=== PATIENT | male | born 1970 | race Caucasian/White ===

== ENCOUNTER 2018-06-08 10:28 | Inpatient (IN) | payer BC, OTHER ==
[2018-06-08] MEDS ORDERED: LR 1,000 ML IV ONE (10:52)
[2018-06-08] MEDS ORDERED: ceFAZolin 2 GM/DEXTROSE 100 ML IV ONE (11:59)
[2018-06-08] MEDS ORDERED: EPINEPHrine 1 MG/ML INJ ONE (12:44)
[2018-06-08] MEDS ORDERED: THROMBIN (BOVINE) 20,000 UNIT VIAL TP ONE (12:44)
[2018-06-08] MEDS ORDERED: CHLORHEXIDINE GLUC HIBICLENS 118 ML BTL TP ONE (12:44)
[2018-06-08] MEDS ORDERED: BACITRACIN 50,000 UNITS/10 ML SYR IRR ONE (12:44)
[2018-06-08] MEDS ORDERED: BUPIVACAINE 0.25% 30 ML SDV ONE (12:44)
[2018-06-08] MEDS ORDERED: CITRATE DEXTROSE SOLN 500 ML BAG ONE (12:46)
--- NOTE | 2018-06-08 12:52 | PDHPUP ---
History & Physical Update H&P update statement: This history and physical update is based on an assessment of the patient which was completed after admission or registration (within 24 hours), but prior to the surgery/procedure. H&P update: H&P reviewed & patient examined, no change in patient's condition since H&P completed (Consents signed and site marked. All questions answered.)
[2018-06-08] MEDS ORDERED: MIDAZOLAM 2 MG/2 ML VIAL IVP ONE (13:11)
--- NOTE | 2018-06-08 13:13 | PDANEPAE ---
ANE Past Medical History - Cardiovascular History Hx Hypertension: Yes Hx Arrhythmias: No Hx Chest Pain: No Hx Coronary Artery / Peripheral Vascular Disease: No Hx CHF / Valvular Disease: No Hx Palpitations: No - Pulmonary History Hx COPD: No Hx Asthma/Reactive Airway Disease: No Hx Recent Upper Respiratory Infection: No Hx Oxygen in Use at Home: No Hx Sleep Apnea: No Sleep Apnea Screening Result - Last Documented: Positive - Neurologic History Hx Cerebrovascular Accident: No Hx Seizures: No Hx Dementia: No - Endocrine History Hx Diabetes: No Obesity: moderate - Renal History Hx Renal Disorders: No - Liver History Hx Hepatic Disorders: No - Neurological & Psychiatric Hx Hx Neurological and Psychiatric Disorders: Yes Neurological / Psychiatric History Comment: sciatica, N/T > Rthan L - Cancer History Hx Cancer: No - Congenital Disorder History Hx Congenital Disorders: No - GI History GERD: mild Hx Gastrointestinal Disorders: No Gastrointestinal History Comment: Occ. heartburn. - Other Health History Other Health History: Osteoarthritis. - Chronic Pain History Chronic Pain: Yes (neck, back) - Surgical History Prior Surgeries: 2007-vasectomy. 2012-wisdom teeth. cervical fusion. lumbar microdiscectomy 2014 ANE Review of Systems Review of Systems: - Exercise capacity METS (RN): 4 METS ANE Patient History - Allergies Allergies/Adverse Reactions: No Known Allergies Allergy (Verified 06/06/18 15:46) - Home Medications Home medications: home medication list seen and reviewed Home Medications: Cyclobenzaprine [Flexeril 10 MG (*)] 10 mg PO TID 02/04/14 [Last Taken 06/08/18] Lisinopril [Zestril 40 mg (*)] 40 mg PO DAILY 02/04/14 [Last Taken 06/08/18] Gabapentin [Neurontin 300 MG (*)] 600 mg PO QID 02/05/14 [Last Taken 06/08/18] HYDROcodone/APAP 10/325 [Ferguson 10/325 (*)] 1.5 tab PO Q6HRS PRN 06/06/18 [Last Taken 06/08/18] Naproxen Sodium [Naproxen Sodium ER] 500 mg PO BID 06/08/18 [Last Taken 06/01/18 ] - NPO status NPO Status: no food or drink >8 hours NPO Since - Liquids (Date): 06/08/18 NPO Since - Liquids (Time): 06:00 NPO Since - Solids (Date): 06/07/18 NPO Since - Solids (Time): 13:00 - Anes Hx Anes Hx: no prior problems - Smoking Hx Smoking Status: Former smoker - Family Anes Hx Family Hx Anesthesia Complications: none ANE Labs/Vital Signs - Vital Signs Blood Pressure: 116/77 Heart Rate: 92 Respiratory Rate: 20 O2 Sat (%): 94 Height: 185.42 cm Weight: 108.862 kg ANE Physical Exam - Airway Neck exam: FROM Mallampati Score: Class 1 Mouth exam: normal dental/mouth exam - Pulmonary Pulmonary: no respiratory distress, no rales or rhonchi, clear to auscultation - Cardiovascular Cardiovascular: regular rate and rhythym, no murmur, rub, or gallop - ASA Status ASA Status: II ANE Anesthesia Plan Anesthesia Plan: general endotracheal anesthesia
[2018-06-08] MEDS ORDERED: MIDAZOLAM 2 MG/2 ML VIAL ONE (13:17)
[2018-06-08] MEDS ORDERED: PROPOFOL 200 MG/20 ML VIAL ONE ×3 (13:28→17:21)
[2018-06-08] MEDS ORDERED: BISACODYL 10 MG SUPP PR PRN (13:44)
[2018-06-08] MEDS ORDERED: ONDANSETRON DISINTEGRATING 4 MG TAB PO PRN (13:44)
[2018-06-08] MEDS ORDERED: diphenhydrAMINE 25 MG CAP PO PRN (13:44)
[2018-06-08] MEDS ORDERED: ONDANSETRON 4 MG/2 ML VIAL IVP PRN ×2 (13:44→16:37)
[2018-06-08] MEDS ORDERED: MAGNESIUM HYDROXIDE 30 ML UDCUP PO PRN (13:44)
[2018-06-08] MEDS ORDERED: LACTULOSE 20 GM/30 ML UDCUP PO PRN (13:44)
[2018-06-08] MEDS ORDERED: NS 1,000 ML IV SCH (13:45)
[2018-06-08] MEDS ORDERED: DEXAMETHASONE 4 MG/ML VIAL ONE ×3 (13:52→13:53)
[2018-06-08] MEDS ORDERED: ONDANSETRON 4 MG/2 ML VIAL ONE (13:52)
[2018-06-08] MEDS ORDERED: ROCURONIUM 50 MG/5 ML VIAL ONE (13:56)
[2018-06-08] MEDS ORDERED: morphINE PF 5 MG/10 ML INJ IT ONE (14:06)
[2018-06-08] MEDS ORDERED: PROPOFOL/EMULSION 500 MG/50 ML BOTTLE IV ONE (15:47)
[2018-06-08] MEDS ORDERED: NALOXONE HCL 0.4 MG/ML INJ IVP PRN ×2 (16:30→18:10)
[2018-06-08] MEDS ORDERED: ESMOLOL HCL 100 MG/10 ML VIAL IV ONE (16:32)
[2018-06-08] MEDS ORDERED: ENALAPRILAT DIHYDRATE 1.25 MG/ML VIAL IVP PRN (16:37)
[2018-06-08] MEDS ORDERED: MEPERIDINE 25 MG/0.5 ML AMP IVP PRN (16:37)
[2018-06-08] MEDS ORDERED: PHENYLEPHRINE HCL 100 MCG/ML SYR IVP PRN (16:37)
[2018-06-08] MEDS ORDERED: LR 500 ML IV PRN (16:37)
[2018-06-08] MEDS ORDERED: HYDROCODONE/APAP 5/325 TAB PO PRN (16:37)
[2018-06-08] MEDS ORDERED: PROMETHAZINE HCL 25 MG/ML INJ IVP PRN (16:37)
[2018-06-08] MEDS ORDERED: PHENYLEPHRINE HCL 100 MCG/ML SYR ONE (17:03)
[2018-06-08] MEDS ORDERED: ceFAZolin 1 GM VIAL ONE ×2 (17:28)
--- NOTE | 2018-06-08 18:04 | POSTOPPROG ---
Post Op Note Date of Operation: 06/08/18 Surgeon: [facility] Custodian: Estella Covarrubias NP Anesthesiologist: Dr Cope Anesthesia: GET(General Endotracheal) Pre-op Diagnosis: Lumbar stenosis Procedure: Right L4-5, L5-S1 TLIF with L4-S1 PSF Inf/Abcess present in the surg proc area at time of surgery?: No Depth: Deep Incisional (Fascial) EBL: 100-500 Total fluids administered: see anesthesia Complications: none Drains: Alejandro Atwood Date of Surgery: 06/08/18 Post Op Day: 0 Assessment/Plan: Assessment: 47 yr old M s/p Right L4-5, L5-S1 TLIF with PSF L4-S1 Plan: -Admit Med Surg -Pain management -MARIO to bulb suction -PT/OT -Post op xrays in am Please call with questions/concerns Subjective: waking up in pacu Objective: waking up in pacu MAEx4 5/5 BLE Dressing CDI MARIO patent Appropriate Neuro Check Frequency Ordered: Yes
--- NOTE | 2018-06-08 18:12 | POSTANESTH ---
Post Anesthetic Evaluation Cardiovascular Status: Normal, Stable, Similar to Pre-Op Cond Respiratory Status: Normal, Stable, Similar to Pre-op Cond. Level of Consciousness/Mental Status: Can Participate in Eval, Moderately Sleepy Pain Control: Adequate, Prn Tx Ordered Nausea/Vomiting Control: Adequate, Prn Tx Ordered Complications Possibly Related to Anesthesia: None Noted
[2018-06-08] MEDS ORDERED: fentaNYL 100 MCG/2 ML INJ ONE ×2 (18:20→19:53)
[2018-06-08] MEDS ORDERED: DIAZEPAM 5 MG/ML 1 ML SYR ONE (18:21)
[2018-06-08] MEDS: DIAZEPAM 5 MG/ML 1 ML SYR IVP PRN ×2 (18:35→19:03)
[2018-06-08] MEDS: fentaNYL 100 MCG/2 ML INJ IVP PRN ×4 (18:41→19:53)
[2018-06-08] MEDS ORDERED: HYDROCODONE/APAP 5/325 TAB ONE (19:40)
[2018-06-08] MEDS: SENNOSIDES/DOCUSATE SODIUM TAB PO SCH (21:37)
[2018-06-08] MEDS: oxyCODONE IR 5 MG TAB PO PRN (21:39)
[2018-06-08] MEDS: ACETAMINOPHEN 500 MG TAB PO SCH (21:40)
[2018-06-08] MEDS: FAMOTIDINE 20 MG TAB PO SCH (21:40)
[2018-06-08] MEDS: METHOCARBAMOL 750 MG TAB PO SCH (21:41)
[2018-06-08] MEDS: GABAPENTIN 300 MG CAP PO SCH (21:42)
[2018-06-08] MEDS ORDERED: CARBOXYMETHYLCELLULOSE 0.5% 0.4 ML DROPERETTE EACHEYE PRN (23:13)
[2018-06-09] MEDS: ceFAZolin 2 GM/DEXTROSE 100 ML IV SCH ×3 (01:26→11:44)
[2018-06-09] MEDS: METHOCARBAMOL 750 MG TAB PO SCH ×5 (05:10→21:17)
[2018-06-09] MEDS: GABAPENTIN 300 MG CAP PO SCH ×5 (05:11→21:18)
[2018-06-09] MEDS: oxyCODONE IR 5 MG TAB PO PRN ×4 (05:13→19:37)
[2018-06-09] MEDS: ACETAMINOPHEN 500 MG TAB PO SCH ×4 (05:14→22:12)
[2018-06-09 05:25] LABS: PLATELET COUNT 189 10^3/uL (150-400)
--- NOTE | 2018-06-09 05:55 | GOP ---
[f rep st] OPERATIVE REPORT DATE OF OPERATION: 06/08/2018 SURGEON: Bowen Hills MD OPTICAL INSTRUMENT REPAIRER: Estella Covarrubias NP. ANESTHESIA: General. PREOPERATIVE DIAGNOSIS: 1. L4-L5, L5-S1 lumbar spondylosis. 2. Right-sided L5-S1 recurrent disk herniation. 3. Right lower extremity radiculopathy. 4. Low back pain. 5. Treatment refractory to nonoperative intervention. POSTOPERATIVE DIAGNOSIS: 1. L4-L5, L5-S1 lumbar spondylosis. 2. Right-sided L5-S1 recurrent disk herniation. 3. Right lower extremity radiculopathy. 4. Low back pain. 5. Treatment refractory to nonoperative intervention. PROCEDURE PERFORMED: 1. Posterior arthrodesis with approach to L4, L5, S1. 2. Posterolateral fusion with bilateral pedicle screw placement at L4, L5, and S1 from [employer] 4.75 system. 3. Right-sided L4-L5 hemilaminotomy with facetectomy, foraminotomy, and nerve root decompression. 4. Right-sided L5-S1 redo hemilaminotomy, facetectomy, and foraminotomy,with nerve root decompression and redo diskectomy. 5. Right-sided L4-5 transforaminal lumbar interbody fusion with an 8 x 26 mm titanium coated PEEK cage filled with morselized autograft and allograft. 6. Right-sided L5-S1 transforaminal lumbar interbody fusion with an 8 x 28 mm titanium PEEK elevate cage filled with morselized autograft and allograft. 7. Posterolateral fusion on the left between L4 and S1 with morselized autograft and allograft. 8. Use of intraoperative 3D Stealth navigation. 9. Use of intraoperative fluoroscopy, less than 1 hour physician time. 10. Use of neuromonitoring. 11. Use of operative microscope. 12. Injection of preservative-free intrathecal narcotics. FINDINGS: per imaging COMPLICATIONS: None. SPECIMENS: None. ESTIMATED BLOOD LOSS: 150 mL. INDICATIONS: The patient is a very pleasant, 47-year-old gentleman, who has undergone a prior right-sided L5-S1 diskectomy. He did quite well but progressed with recurrent low back pain with right greater than left lower extremity radiculopathy. He had evidence of recurrent disk herniation on the right side at L5-S1. After discussion of risks, benefits, and treatment alternatives and after failing nonoperative management, we decided to proceed forth with surgery as described above. DESCRIPTION OF PROCEDURE: The patient was brought to the operating theater and underwent general endotracheal anesthesia without complications. He had Venodynes, ARLET hose, and the appropriate lines placed per Anesthesia. He was flipped prone onto the Alejandro table and all bony prominences inspected and padded. The lower lumbar region was then prepped and draped in the usual sterile surgical fashion. A time-out was completed per protocol and the patient received antibiotics within 1 hour of incision. Using lateral fluoroscopy and a spinal needle, we picked our entry point to the L4 through S1 levels. This incorporated his prior incision. The incision was infiltrated with Marcaine with epinephrine. The incision was taken down with the scalpel blade and using monopolar, taken down midline through the lumbodorsal fascia. A subperiosteal dissection was carried out to the transverse processes of L4, L5, and S1 bilaterally. Care was taken to preserve the L3-4 facet joint bilaterally and to avoid the prior right-sided L5-S1 hemilaminotomy defect. Deep retractors were placed to maintain our exposure. We confirmed our level using lateral fluoroscopy. The patient did have a sacralized S1-S2 segment and we confirmed the levels based on his MRI scan. We attached the 3D Stealth navigation clamp to the spinous process of S1 and completed a 3D Stealth navigation spin. Using 3D navigation, we placed the hardware sales assistant holes for the bilateral pedicle screws at L4, L5, and S1. All holes were manually palpated with evidence of any cortical breaches. We tapped and placed 6.5 x 55 mm screws bilaterally in L, L5 and left-sided S1 and 6.5 x 60 mm screw on the right S1, all from [employer]era 4.75 system. Another 3D Stealth navigation spin demonstrated good placement of the hardware. The microscope was brought into the field to assist with microscopic dissection and to maintain illumination and magnification. Using a combination of the bur tip on the drill bit, Kerrison punches, and Leksell rongeur, we completed a right-sided L4-5 hemilaminotomy with an aggressive facetectomy and nerve root decompression with foraminotomy. We distracted the interspace and completed a right L4-5 diskectomy. We prepared the cartilaginous endplates and measured the interbody space. We placed an 8 x 26 mm titanium coated PEEK cage filled with morselized autograft and allograft anteriorly and toward the midline. We packed additional morcellized autograft into the disk space for the interbody fusion. We let down the distraction and moved down to the L5-S1 level. We completed a right-sided redo L5-S1 hemilaminotomy with aggressive facetectomy and foraminotomy. The patient was noted to be extremely adherent and scarred to this level from his prior surgery. We retracted the thecal sac medially as far as we could. We were able to pull out a few free fragments of disk material. We then completed a right-sided L5-S1 diskectomy. We prepared the cartilaginous endplates and measured the interbody space. We placed an 8 x 28 mm titanium PEEK elevate cage filled with morselized autograft and allograft anteriorly and toward the midline. We packed additional morcellized autograft in the disk space for interbody fusion. We let down the distraction and decorticated the bone on the left side between L4 and S1. We placed 2 lordotic rods into the heads of the screws between L4 and S1 and secured them down with cap screws which were tightened per manufacture's setting. The wound was irrigated copiously with bacitracin irrigation. We placed morselized autograft and allograft on the left side between L4 and S1. We injected preservative-free intrathecal narcotics. A drain was left in the subfascial space and the wound then closed in multiple layers including Vicryl sutures in the deep layers and Dermabond for the skin. The patient's wounds were dressed sterilely. He was flipped supine onto the transfer cart, where he was awakened, extubated, and taken to the recovery room in stable condition. There were no complications and no noted changes on neuromonitoring throughout the procedure. /[id number]/MODL MTDD
[2018-06-09] MEDS: LISINOPRIL 40 MG TAB PO SCH (08:26)
[2018-06-09] MEDS: FAMOTIDINE 20 MG TAB PO SCH ×2 (08:26→21:17)
[2018-06-09] MEDS: SENNOSIDES/DOCUSATE SODIUM TAB PO SCH ×2 (08:26→21:18)
--- NOTE | 2018-06-09 08:33 | SOAPPROG ---
SOAP Progress Note Assessment/Plan: Assessment: 47 yo male POD #1 sp L4-S1 TLIF Has new right anterior thigh tingling Plan: LSO when OOB PT/OT as tolerated Continue MARIO drains Xrays today 06/09/18 08:30 06/09/18 08:32 Subjective: Sitting in bedside chair. Feeling "okay" he reports new right anterior thigh tingling since surgery - likely from positioning no other issues. Objective: Vital Signs Temp Pulse Resp BP Pulse Ox 36.6 C 95 18 129/88 H 95 06/09/18 06:50 06/09/18 06:50 06/09/18 06:50 06/09/18 06:50 06/09/18 06:50 Laboratory Results 06/09/18 04:30 06/09/18 04:30 06/08/18 06/09/18 06/10/18 05:59 05:59 05:59 Intake Total 3120 580 Output Total 1915 195 Balance 1205 385 Neuro: A+0X4, speech clear. He is a bit tearful and has some anxiety SHETH, sens +LT except subjective right anterior thigh tingling He is ambulatory in LSo MARIO: 45 ml this AM ICD10 Worksheet Patient Problems: Problems Problem Status Onset Cervical stenosis of spinal canal Acute
--- NOTE | 2018-06-09 11:13 | PDMN ---
Medical Necessity [place] [facility] [place] 2 days: 47 yo s/p L4/L5/S1 TLIF Lum Espino, L4/5 Posterior Fusion w/ Steath and L5/S1 Redo Facetectomy & Lumbar Discectomy w/ Stealth, MC IP only.
--- NOTE | 2018-06-09 15:13 | ASMTCMCOM ---
CM Note CM Note Notes: Pt had planned surgery for lumbar stenosis, resides with spouse. PT rec outpatient. Anticipate pt will d/c when medically stable. No Cm d/c needs identified. CM available for changes/needs. D/c plan: Independent Date Signed: 06/09/2018 03:12 PM Electronically Signed By:DANI Stone
[2018-06-09] MEDS: POLYETHYLENE GLYCOL 3350 17 GM PKT PO PRN (21:15)
[2018-06-10] MEDS: ACETAMINOPHEN 500 MG TAB PO SCH (05:25)
[2018-06-10] MEDS: METHOCARBAMOL 750 MG TAB PO SCH ×2 (05:25→11:28)
[2018-06-10] MEDS: GABAPENTIN 300 MG CAP PO SCH ×2 (05:26→11:29)
[2018-06-10] MEDS: LISINOPRIL 40 MG TAB PO SCH (08:42)
[2018-06-10] MEDS: FAMOTIDINE 20 MG TAB PO SCH (08:42)
[2018-06-10] MEDS: POLYETHYLENE GLYCOL 3350 17 GM PKT PO PRN (08:42)
[2018-06-10] MEDS: oxyCODONE IR 5 MG TAB PO PRN (08:43)
[2018-06-10] MEDS: SENNOSIDES/DOCUSATE SODIUM TAB PO SCH (08:43)
[2018-06-10] MEDS ORDERED: ENOXAPARIN 40 MG/0.4 ML SYR SC SCH (09:00)
--- NOTE | 2018-06-10 10:53 | NEUSURGPN ---
Assessment/Plan: Assessment: 47 yr old M s/p Right L4-5, L5-S1 TLIF with PSF L4-S1 POD#2 Plan: -Pain management, currently well controlled -Remove MARIO -PT/OT -Post op xrays show stable hardware placement -Discharge home today -Discussed patient with Dr Hills Please call with questions/concerns Subjective: Doing well, ready to go home Objective: AxOx4 MAEx4 5/5 BUE, BLE Sensation intact to light touch BLE Dressing/incision CDI MARIO patent Neuro Check Frequency: per routine Urinary Catheter in Place: No Catheter Insertion Date: 06/08/18 - Physician Discussed Patient with : [facility] Physical Exam - Vitals, I&O, Labs I and O 06/09/18 06/10/18 06/11/18 05:59 05:59 06:59 Intake Total 3120 3280 Output Total 1915 1335 Balance 1205 1945 Weight 108.862 kg Intake: Oral (ml) 120 2700 IV Intake (ml) 3000 480 IV Infused (ml) 100 ceFAZolin 2 GM/DEXTROSE 100 100 ml @ 200 mls/hr IV ONCALL ONE Rx#:[id number] Output: Urine (ml) 1675 1100 Catheter 1675 150 Toilet 950 Estimated Blood Loss (ml) 150 MARIO Drain Output (ml) 90 235 Back Alejandro Atwood 90 235 Other: Intake Quantity Yes Sufficient Number of Voids Catheter 1 Toilet 1 1 Number of Stools Toilet 1 Vital Signs Temp Pulse Resp BP Pulse Ox 37.2 C 102 H 16 110/71 96 06/10/18 08:00 06/10/18 08:00 06/10/18 08:00 06/10/18 08:42 06/10/18 08:00 Laboratory Results 06/09/18 04:30 06/09/18 04:30 ICD10 Worksheet Patient Problems: Problems Problem Status Onset Cervical stenosis of spinal canal Acute
[2018-06-10 11:58] VITALS: BP 111/73
--- NOTE | 2018-06-10 12:41 | ASMTLACE ---
LACE Length of stay for Answers: Less than 1 day current admission Acuity / Level of Answers: Yes Care: Did the patient have an inpatient admission? Comorbidities - select Answers: Opioid dependence all that apply / Chronic pain Other Notes: HTN # of Emergency department Answers: 0 visits in the last 6 months Score: 8 Date Signed: 06/10/2018 12:41 PM Electronically Signed By:DANI Joshua
--- NOTE | 2018-06-10 12:44 | ASDISCHSUM ---
Discharge Information Plan Status:Home with No Needs Medically Cleared to Leave:06/09/2018 Discharge Date:06/09/2018 CM D/C Disposition:Home, Routine, Self-Care ADT D/C Disposition:Home, Routine, Self-Care Projected Discharge Date:06/09/2018 Transportation at D/C:Family Discharge Delay Reason: Follow-Up Date:06/09/2018 Discharge Slot: Final Diagnosis: Placement Information Patient Contact Information Contact Name:GRACE Relationship: Address:[address] Work Phone: City:[place] Phone: State/Zip Code:[place] [address] Email: Financial Information Financial Class:BCOP Primary Plan Desc: OUT OF STATE O Primary Plan Number:[id number] Secondary Plan Desc: Secondary Plan Number: Assessment Information LACE LACE Length of stay for Answers: Less than 1 day current admission Acuity / Level of Answers: Yes Care: Did the patient have an inpatient admission? Comorbidities - select Answers: Opioid dependence all that apply / Chronic pain Other Notes: HTN # of Emergency department Answers: 0 visits in the last 6 months Score: 8 Date Signed: 06/10/2018 12:41 PM Electronically Signed By:DANI [facility] CM Progress Note CM Note CM Note Notes: Pt had planned surgery for lumbar stenosis, resides with spouse. PT rec outpatient. Anticipate pt will d/c when medically stable. No Cm d/c needs identified. CM available for changes/needs. D/c plan: Independent Date Signed: 06/09/2018 03:12 PM Electronically Signed By:DANI Stone Case Management Discharge Plan Note Case Management Discharge Discharge Order Complete? Answers: Yes Patient to Obtain Answers: via Family Medications Transportation Arranged Answers: Family/Friends Discharge Comments Notes: Pt is s/p planned surgery for lumbar stenosis. PT has cleared him for outpatient therapy. Pt is discharging home today with his and no CM needs. Date Signed: 06/10/2018 12:43 PM Electronically Signed By:DANI Joshua Intervention Information
== END 2018-06-10 13:46 | disposition home or self-care (01) | DRG 455 ==
LOC: F3N 10:28
PROVIDERS: ADMIT Neurological Surgery; ATTEND Neurological Surgery
DX: M48.061 Spinal stenosis, lumbar region without neurogenic claudication (principal); M47.26 Other spondylosis with radiculopathy, lumbar region; M47.27 Other spondylosis with radiculopathy, lumbosacral region; M51.27 Other intervertebral disc displacement, lumbosacral region; I10 Essential (primary) hypertension; G47.30 Sleep apnea, unspecified; R12 Heartburn; Z87.891 Personal history of nicotine dependence; G89.29 Other chronic pain
CPT/HCPCS: 97116-GP; 97161-GP; 97165-GO; 97535-GO; C1713; J0171; J0690; J1100; J1650; J2250; J2270; J2274; J2370; J2405; J2704; J3010; J3360